=== PATIENT | female | born 1990 | race Caucasian/White ===

== ENCOUNTER 2017-03-31 10:36 | Emergency (ER) | payer MEDICAID, OTHER ==
[~2017-03-31] VITALS: Wt 69.6 kg
[2017-03-31] MEDS ORDERED: METOCLOPRAMIDE 10 MG INJ IV STA (11:06)
[2017-03-31] MEDS ORDERED: SOD CHLORIDE 0.9% 1,000 ML IV STA (11:06)
[2017-03-31] MEDS ORDERED: DIPHENHYDRAMINE 50 MG INJ IV STA (11:06)
[2017-03-31] MEDS ORDERED: KETOROLAC 30 MG INJ IV STA (11:06)
[2017-03-31 12:26] LABS: ADD UMIC YES; UR ASCORBIC ACID NEGATIVE (NEGATIVE); UR BILIRUBIN (Dip) NEGATIVE (NEGATIVE); UR BLOOD (Dip) NEGATIVE (NEGATIVE); UR CLARITY SLIGHTLY CLOUDY (CLEAR); UR COLOR YELLOW (YELLOW); UR GLUCOSE (Dip) NEGATIVE (NEGATIVE); UR KETONES (Dip) NEGATIVE (NEGATIVE); UR LEUKOCYTE ESTERASE (Dip) TRACE Leu/ul (NEGATIVE); UR MUCUS FEW /HPF (NONE SEEN); UR NITRITE (Dip) NEGATIVE (NEGATIVE); UR RBC 2 /HPF (0-5); UR SPECIFIC GRAVITY (Dip) 1.023 (1.003-1.030); UR SQUAMOUS EPITHELIAL CELL FEW /HPF (FEW); UR TOTAL PROTEIN (Dip) 1+ mg/dl (NEGATIVE); UR UROBILINOGEN (Dip) NEGATIVE (NEGATIVE)
[2017-03-31] MEDS ORDERED: IBUP400T22 PO (13:22)
[2017-03-31] MEDS ORDERED: MECL12.574 PO (13:22)
[2017-03-31 13:30] VITALS: BP 138/80; PULSE 78; RESP 18; TEMP 98.4
--- NOTE | 2017-03-31 13:35 | ERD ---
ER Documentation Chief Complaint Date/Time DATE: 03/31/17 TIME: 13:31 Chief Complaint HEADACHE AND DIZZINESS NO TRAUMA. NO NEURO DEF. ONSET SINCE 0700 HPI This is a 26-year-old female presenting to emergency department with headache and dizziness starting earlier today. Symptoms started around 7 AM this morning. Patient rates headache 6/10 with no localized area of tenderness or pain. Patient reports dizziness and feels like the room is spinning. No head trauma or injury. No recent fall. No weakness. No loss of vision, blurry vision or change in vision. No difficulty walking. No fatigue. No back or neck pain. No chest pain, shortness of breath or difficulty breathing. No fevers or chills. ROS All systems reviewed and are negative except as per history of present illness. Medications Home Meds Active Scripts Ibuprofen* (Motrin*) 400 Mg Tab, 400 MG PO Q6, #15 TAB Prov:COLETTE ZABALA NP 03/31/17 Meclizine Hcl* (Antivert*) 12.5 Mg Tab, 12.5 MG PO Q6H Y for DIZZINESS, #20 TAB Prov:COLETTE ZABALA NP 03/31/17 PMhx/Soc Medical and Surgical Hx: pt denies Medical Hx, pt denies Surgical Hx Hx Alcohol Use: No Hx Substance Use: No Hx Tobacco Use: No Smoking Status: Never smoker Physical Exam Vitals Vital Signs Date Time Temp Pulse Resp B/P Pulse Ox O2 Delivery O2 Flow Rate FiO2 03/31/17 10:39 98.5 88 20 140/81 97 Physical Exam Const: No acute distress, alert Head: Atraumatic Eyes: Normal Conjunctiva, PERRL, EOMs intact ENT: Normal External Ears, Nose and Mouth. Neck: Full range of motion..~ No meningismus. Resp: Clear to auscultation bilaterally Cardio: Regular rate and rhythm, no murmurs Abd: Soft, non tender, non distended. Normal bowel sounds Skin: No petechiae or rashes Back: No midline or flank tenderness Ext: No cyanosis, or edema Neur: Awake and alert, Cranial nerves II to XII intact. Strength equal bilaterally to upper and lower extremities. No arm drift. Psych: Normal Mood and Affect Results 24 hrs Laboratory Tests Test 03/31/17 12:03 Urine Color YELLOW Urine Clarity SLIGHTLY CLOUDY Urine pH 7.0 Urine Specific Kite 1.023 Urine Ketones NEGATIVEmg/dL Urine Nitrite NEGATIVEmg/dL Urine Bilirubin NEGATIVEmg/dL Urine Urobilinogen NEGATIVEmg/dL Urine Leukocyte Esterase TRACELeu/ul Urine Microscopic RBC 2/HPF Urine Microscopic WBC 3/HPF Urine Squamous Epithelial Cells FEW/HPF Urine Mucus FEW/HPF Urine Hemoglobin NEGATIVEmg/dL Urine Glucose NEGATIVEmg/dL Urine Total Protein 1+mg/dl Current Medications Medications (Trade) Dose Ordered Sig/Michelle Route PRN Reason Start Time Stop Time Status Last Admin Dose Admin Sodium Chloride (NS) 1,000 ml @ 1,000 mls/hr Q1H STAT IV 03/31/17 11:06 03/31/17 12:05 DC 03/31/17 11:59 Metoclopramide HCl (Reglan) 10 mg ONCE STAT IV 03/31/17 11:06 03/31/17 11:09 DC 03/31/17 11:56 Ketorolac Tromethamine (Toradol) 30 mg ONCE STAT IV 03/31/17 11:06 03/31/17 11:09 DC 03/31/17 11:57 Diphenhydramine HCl (Benadryl) 25 mg ONCE STAT IV 03/31/17 11:06 03/31/17 11:09 DC 03/31/17 11:56 Procedures/MDM This is a 26-year-old female presenting to emergency department with headache and dizziness starting earlier today. Physical exam is overall unremarkable. Normal neuro exam. Normal eye exam. No weakness. No fatigue. No neck or back pain. IV access obtained and patient given 1 L IV fluid bolus with Reglan , Benadryl and Toradol IV. UA is negative for infection. Urine is negative. No fevers or chills. No diplopia, loss of vision or blurry vision. No photophobia. No trauma to head or fall. No loss of consciousness. No nausea or vomiting. No confusion or altered mental status. Upon reassessment of patient, patient states pain has improved significantly. Patient currently denies dizziness. Patient denies ataxic gait, slurred speech, numbness of the face or body, weakness, clumsiness, or incoordination. Low suspicion for CVA, TIA, meningitis, subdural hematoma, intracranial hemorrhage or mass. Differential diagnosis includes but not limited to tension headache, migraine headache, cluster headache, sinus headache, sinusitis, trigeminal neuralgia, herpes zoster and postherpetic neuralgia. Patient is appropriate for outpatient management will be given prescription for meclizine and ibuprofen. Instructed patient to follow-up with primary care provider in the next 2-3 days for reassessment. Resources provided. Return to ED for any high fever, chest pain, difficulty breathing, shortness breath, wheezing, vomiting, diarrhea, abdominal pain or any new or worsening symptoms. Patient verbalizes understanding. All questions answered at discharge. Disclaimer: Inadvertent spelling and grammatical errors are likely due to EHR/ dictation software use and do not reflect on the overall quality of patient care. Also, please note that the electronic time recorded on this note does not necessarily reflect the actual time of the patient encounter. Departure Diagnosis: Primary Impression: Dizziness Additional Impression: Headache Condition: Stable Patient Instructions: Dizziness, Unk Cause, Headache, Unspecified Referrals: [facility] Usted se rosa hecho un examen mdico de control que le indica que no est en howie condicin que requiera tratamiento urgente en el Departamento de Emergencia. Un estudio ms profundo y el tratamiento de parisi condicin pueden esperar sin ningn riesgo hasta que usted sea atendida/o en el consultorio de parisi mdico o howie cl giovany. Es responsabilidad suya arreglar howie hilario para el seguimiento del lawrence. MANEJO DE CONDICIONES NO URGENTES EN EL FUTURO 1) Si usted tiene un mdico de atencin primaria: Usted debera llamar a parisi mdico de atencin primaria antes de venir al departamento de emergencia. Despus de las horas de consultorio, parisi doctor o parisi asociado/a est disponible por telfono. El mdico o enfermero de alfredo en el servicio telefnico puede asesorarle por kassidy medio para atender el problema, o lawrence contrario se puede programar howie hilario. 2) Si usted no tiene un mdico de atencin primaria: Llame al mdico o clnica de referencia que aparece abajo desean las horas de consultorio para hacer howie hilario para que le vean. CLINICAS: [facility] [id number] [facility] [phone] [facility] [phone] [place] [phone] [address] [facility]. [place] [address] [phone] [facility]. [phone] [address] [facility]. [facility] () ted se rosa hecho un examen mdico de control que le indica que no est en howie condicin que requiera tratamiento urgente en el Departamento de Emergencia. Un estudio ms profundo y el tratamiento de parisi condicin pueden esperar sin ningn riesgo hasta que usted sea atendida/o en el consultorio de parisi mdico o howie cl giovany. Es responsabilidad suya arreglar howie hilario para el seguimiento del lawrence. MANEJO DE CONDICIONES NO URGENTES EN EL FUTURO 1) Si usted tiene un mdico de atencin primaria: ted debera llamar a parisi mdico de atencin primaria antes de venir al departamento de emergencia. Despus de las horas de consultorio, parisi doctor o parisi asociado/a est disponible por telfono. El mdico o enfermero de alfredo en el servicio telefnico puede asesorarle por kassidy medio para atender el problema, o lawrence contrario se puede programar howie hilario. 2) Si usted no tiene un mdico de atencin primaria: Llame al mdico o condado institucions de referencia que aparece abajo desean las horas de consultorio para hacer howie hilario para que le vean. SI USTED NO PUEDE PAGAR PARA REBEKAH UN MEDICO puede ir a: [facility] [phone] [place] [address] [facility] [address] [place] [address] [facility] [address] [place] [address] PARA [facility] CHILDRENKAISER HAYWARD [address] [place], [place] [id number] Additional Instructions: Llame al doctor MAANA y adrianna howie HILARIO PARA DENTRO DE 2-3 FULLER.Dgale a la secretaria que nosotros le instruimos hacer esta hilario.Avise o llame si parisi condicin se empeora antes de la hilario. Regresa aqui si peor o no mejor. Regresar a ED por fiebre sarah, dolor en el pecho, dificultad para respirar, respiracin entrecortada, sibilancias, vmitos, diarrea, dolor abdominal o cualquier sntoma nuevo o que empeora. COLETTE ZABALA NP Mar 31, 2017 13:35
== END 2017-03-31 13:31 | disposition home or self-care (01) ==
LOC: FTE 10:36
DX: R42 Dizziness and giddiness (principal)
CPT/HCPCS: 36415; 81001; 96374; 96375; J1200; J1885; J2765; J7030; Z7502